=== PATIENT | female | born 1940 | race Caucasian/White ===

== ENCOUNTER 2017-12-26 16:06 | Outpatient (CLI) | payer MEDICARE | END 2017-12-26 16:07 | disposition home or self-care (01) | LOC: BICRAD 16:06 | PROVIDERS: ATTEND Family Medicine | DX: R06.02 Shortness of breath (principal) | CPT/HCPCS: 71046 ==

== ENCOUNTER 2018-01-11 10:51 | Outpatient (CLI) | payer MEDICARE ==
--- NOTE | 2018-01-11 13:17 | CT ---
CT CHEST WITH IV CONTRAST: Date: 01/11/18 HISTORY: Shortness of breath. FINDINGS: There is a 5.0 mm low density lesion in the right lobe of the thyroid gland. No mediastinal, hilar, o r axillary mass or lymphadenopathy seen. There are vascular calcifications without evidence of aneury smal dilatation of the thoracic aorta. No pleural or pericardial effusions are seen. Mild emphysemato us changes are seen. There is a 5.0 mm nodule in the right upper lobe. An 8-9 mm nodule is noted post eriorly in the right upper lobe close to the fissure. There are changes of vertebroplasty in the spin e. IMPRESSION: Indeterminate lung nodules. Further evaluation PET scan would be helpful. POS: PEÑA
[2018-01-11] MEDS ORDERED: Iopamidol 370 76% 100 ML VIAL ONE (15:04)
== END 2018-01-11 10:52 | disposition home or self-care (01) ==
LOC: CT 10:51
DX: R91.8 Other nonspecific abnormal finding of lung field (principal); Z87.891 Personal history of nicotine dependence
CPT/HCPCS: 71260

== ENCOUNTER 2018-02-23 11:45 | Outpatient (CLI) | payer MEDICARE ==
--- NOTE | 2018-02-23 13:45 | PET ---
PET WITH CT SKULL TO MID THIGH: COMPARISON: Reference is made to recent chest CT 01/11/18. CLINICAL HISTORY: Solitary pulmonary nodule. FINDINGS: There is appropriate biodistribution of radiotracer activity. FINDINGS: There is no abnormal hypermetabolic activity localizing to previously documented pulmonary nodule of the right upper lobe. The previously documented nodular density abutting the right major fissure is less conspicuous with patchy ground-glass and interstitial opacities of this region remaining which m ay relate to interstitial lung disease. There is no hypermetabolic mass or adenopathy of the abdomen and pelvis. No hypermetabolic osseous l esions are visualized. There is a focus of increased metabolic activity localizing to the region of the transverse colon which is contracted in this region. This is not definitively characterized on t he basis of this exam. There is a 9 mm focus of subcutaneous density posteriorly at the central upp er chest with mild increased metabolic activity. This may relate to a sebaceous cyst. Correlate wit h physical exam. IMPRESSION: 1. No hypermetabolic activity localizing to ground-glass nodule of right upper lobe. The additional nodular density abutting the right major fissure is less conspicuous with interstitial lung disease present at this region given residual nodular density of the right upper lobe. A 6-month followup CT thorax is documented appropriate resolution, and to exclude progression in size. 2. Focal area of increased metabolic activity localizing to the region of transverse colon which may be physiologic. As a conservative measure, recommend appropriate age-related colonic screening to e xclude an underlying mural-based lesion, which is difficult to entirely exclude on the basis of this exam which is not tailored to evaluate the bowel. POS: PEÑA
== END 2018-02-23 11:46 | disposition home or self-care (01) ==
LOC: PET 11:45
DX: J43.2 Centrilobular emphysema (principal); R91.1 Solitary pulmonary nodule; J45.30 Mild persistent asthma, uncomplicated; J30.2 Other seasonal allergic rhinitis
CPT/HCPCS: 78815; A9552

== ENCOUNTER 2018-10-12 15:05 | Outpatient (CLI) | payer MEDICARE ==
--- NOTE | 2018-10-12 15:38 | CT ---
CT OF CHEST PERFORMED WITHOUT CONTRAST ENHANCEMENT: Date: 10/12/18 HISTORY: Follow-up pulmonary nodules. COMPARISON: 01/11/18 exam. FINDINGS: A ground-glass nodule seen on axial image 15 in the right upper lobe measures in the 5-6 mm range. It is felt to be stable. The second area of ground-glass nodularity, which was seen in the posterior se gment of the right upper lobe abutting the fissure, is much less prominent on this examination. The p arenchymal changes that were surrounding that area are stable. There are no new nodules identified. A chronic interstitial lung change I the right base is stable. I do not appreciate any significant mediastinal or hilar adenopathy. Coronary calcifications are pres ent. There are hypodensities within the liver which appear to represent cysts. Right and left adrenal glands are normal. Vertebroplasty changes are noted. IMPRESSION: 1. Stable appearance to an approximately 5-6 mm right upper lobe ground-glass nodule. 2. The second nodular density which was seen to measure in the 8.0 mm range located along the senior office support assistant sosa ior segment of the right upper lobe abutting the major fissure is not even perceptible on this examin ation. The parenchymal changes in this area are similar to the prior study. POS: EMILE
== END 2018-10-12 15:06 | disposition home or self-care (01) ==
LOC: BICCT 15:05
PROVIDERS: ATTEND Internal Medicine Pulmonary Disease
DX: R91.1 Solitary pulmonary nodule (principal); J43.2 Centrilobular emphysema; J45.30 Mild persistent asthma, uncomplicated; J30.2 Other seasonal allergic rhinitis; K51.80 Other ulcerative colitis without complications; R10.9 Unspecified abdominal pain; M06.39 Rheumatoid nodule, multiple sites; E03.1 Congenital hypothyroidism without goiter; D51.0 Vitamin B12 deficiency anemia due to intrinsic factor deficiency; I73.9 Peripheral vascular disease, unspecified; Z79.899 Other long term (current) drug therapy
CPT/HCPCS: 36415; 71250; 80053; 82607; 82746; 84443; 85025

== ENCOUNTER 2019-11-20 11:46 | Outpatient (CLI) | payer MEDICARE ==
--- NOTE | 2019-11-20 13:08 | MRI ---
MRI LUMBAR SPINE NONCONTRAST: DATE: 11/20/2019 HISTORY: 79-year-old female with lumbar radiculopathy M 54.16 COMPARISON: None FINDINGS: There is dilation of the common bile duct, common hepatic duct, and pancreatic duct. This was also pr esent on abdominal and pelvis CT of 09/19/2012. There is an approximately 1 cm T2 moderately hyperintense lesion in the right lobe of the liver hepatic segment 6, which was shown by the 09/19/2012 CT to be a hemangioma. There is vertebroplasty cement at every visualized lumbar vertebral body as seen on sagittal images, T10, T11, T12, L1, L2, L3, L4, and L5. There is mild broad indentation of the superior endplate of T11, causing low-grade, mild loss of height. Prominent Schmorl's node at superior endplate of T12 wit hout overall loss of height. Mild anterior wedging with right-sided approximately 20-30% loss of height of L1. Large focal depression of superior endplate of L2 consistent with a large Schmorl's nod e and overall mild anterior wedging. Otherwise, the rest of the lumbar vertebral body heights are maintained. Superior endplate of T10 is excluded from the [id number] on the sagittal images. There is exaggerated lordosis of lumbar spine. No bone marrow edema. T12-L1:No high-grade disc space narrowing. Minimal disc bulge. No central or neural foraminal stenosi s. Conus medullaris terminates at L1. L1-2:Retrolisthesis of L1 on L2. Disc space narrowing. Despite the retrolisthesis, there is no centra l stenosis. Mild to moderate right neural foraminal stenosis. No significant left neural foraminal stenosis. L2-3:Retrolisthesis of L2 on L3, plus prominent diffuse disc bulge. Moderate ligamentum flavum thicke marcus, right greater than left. Moderate central spinal canal stenosis. Severe thecal sac stenosis. Moderate to severe bilateral neural foraminal stenosis. L3-4:Retrolisthesis of L3 on L4. Mild diffuse disc bulge. Moderate bilateral facet DJD. No significan t central stenosis. Moderate right neural foraminal stenosis. Moderate to severe left neural foraminal stenosis. L4-5:Somewhat severe bilateral facet DJD causes minimal anterolisthesis of L4 on L5 by approximately 2 mm. Disc space maintained. Mild disc bulge. Ligamentum flavum mild thickening. No significant central stenosis. Mild right neural foraminal stenosis. Moderate left neural foraminal stenosis. L5-S1:Somewhat severe bilateral facet DJD. Disc space maintained. Minimal anterolisthesis of L5 on S1 . No central stenosis. No neural foraminal stenosis. Bilateral "conjoined" nerve roots. 0.7 cm round nerve root sleeve cyst within left neural foramen. This chronically indents the exiting left L5 nerve root. IMPRESSION: 1) vertebroplasty cement at L3 visualized level throughout the entire lumbar spine and visualized low er thoracic spine. 2) prominent superior endplate Schmorl's nodes and mild chronic anterior wedging of T11, T12, L1, and especially L2. 3) lumbar spondylosis, with multilevel mild and moderate degenerative disc disease, and high-grade lo wer level facet osteoarthrosis. Exaggerated lordosis. 4) severe thecal sac stenosis at L2-3. 5) retrolistheses at L1-2, L3-4, and especially L2-3. 6) several levels of high-grade neural foraminal stenosis. 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 8) ductal ectasia of pancreatic duct, common bile duct, and common hepatic duct, apparently chronic.
== END 2019-11-20 11:47 | disposition home or self-care (01) ==
LOC: MRI 11:46
PROVIDERS: ATTEND Anesthesiology Pain Medicine
DX: M51.16 Intervertebral disc disorders with radiculopathy, lumbar region (principal); M47.26 Other spondylosis with radiculopathy, lumbar region; M51.46 Schmorl's nodes, lumbar region; M40.56 Lordosis, unspecified, lumbar region; M48.061 Spinal stenosis, lumbar region without neurogenic claudication; M43.16 Spondylolisthesis, lumbar region; K83.8 Other specified diseases of biliary tract; K86.89 Other specified diseases of pancreas; Z98.890 Other specified postprocedural states
CPT/HCPCS: 72148

== ENCOUNTER 2020-08-21 14:15 | Outpatient (CLI) | payer MEDICARE ==
--- NOTE | 2020-08-21 15:29 | MRI ---
MRI Lumbar Spine Noncontrast: HISTORY: Foraminal stenosis of lumbar region COMPARISON: 11/20/2019 FINDINGS: A 6 mm hyperintense lesion is seen in the posterior aspect posterior segment right hepatic lobe. The larger hyperintense lesion seen in the liver on prior exam is not imaged on today's exam. T2 hyperintense area within the left renal pelvis is again seen and likely related to parapelvic renal c yst. Dilatation of the common duct is again seen on this exam. Vertebroplasty changes are again seen throughout the lower thoracic and lumbar spine and involving al l the vertebral bodies extending from the T9 vertebral body to the L5 vertebral body. Prominent Schmorl's nodes are seen in lower thoracic and upper lumbar spine. Mild anterior wedging of lower tho racic and upper lumbar vertebral bodies again seen and stable. Exaggerated lordosis thoracolumbar spine is again seen. Conus medullaris is normal in morphology and terminates at the L1 level. Paravertebral soft tissues have a normal appearance. T12-L1: Mild disc osteophyte complex without significant central canal or neural foraminal narrowing. L1-2: Stable slight retrolisthesis of L1 on L2. Broad-based disc osteophyte complex is present. There is slight effacement of the ventral subarachnoid space without significant central canal narrowing. Mild to moderate right and mild left-sided neural foraminal narrowing is present. L2-3: Stable retrolisthesis of L2 on L3. Loss of intervertebral disc height and broad-based disc oste ophyte complex is again seen. Facet hypertrophic changes and ligamentous thickening are noted. Findings again result in severe central canal narrowing. Moderate to severe bilateral neural foramina l narrowing is again seen. There is increased T2-weighted signal intensity along the posterior endplates at this level likely related to degenerative endplate changes. L3-4: Stable slight retrolisthesis of L3 on L4. Broad-based disc osteophyte complex and facet hypertr ophic changes are again seen. No significant central canal narrowing, but there is moderate right and moderate to severe left-sided neural foraminal narrowing again present L4-5: Mild broad-based disc osteophyte complex with moderate facet hypertrophic changes. Suggestion o f trace anterolisthesis of L4 on L5. No significant central canal narrowing is present, but there is mild right and [id number] left-sided neural foraminal narrowing. L5-S1: Moderate facet hypertrophic changes. Central spinal canal and neural foramina are patent at th is level. Minimal disc bulge is present. Dilated nerve root sleeve left neural foramen is present. 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 IMPRESSION: 1. Multilevel vertebroplasty changes throughout the visualized lower thoracic spine as well as involv ing the lumbar spine. 2. Stable chronic wedge-shaped deformities of lower thoracic and upper lumbar vertebral bodies. 3. Persistent severe central canal narrowing at the L2-3 level. 4. Retrolisthesis of L1 on L2, L2 on L3, and L3 on L4. 5. Varying degrees of neural foraminal narrowing at multiple levels including moderate and severe deg bola of neural foraminal narrowing. 6. Stable dilated nerve root sleeve L5-S1 left neural foramen. 7. MRI lumbar spine is stable compared to prior exam.
== END 2020-08-21 14:16 | disposition home or self-care (01) ==
LOC: MRI 14:15
PROVIDERS: ATTEND Anesthesiology Pain Medicine
DX: M48.061 Spinal stenosis, lumbar region without neurogenic claudication (principal); M43.8X4 Other specified deforming dorsopathies, thoracic region; M43.8X6 Other specified deforming dorsopathies, lumbar region; M43.16 Spondylolisthesis, lumbar region; Z98.890 Other specified postprocedural states
CPT/HCPCS: 72148

== ENCOUNTER 2020-12-30 06:21 | Inpatient (IN) | payer MEDICARE ==
[2020-12-30 07:17] LABS: #Eosinphils 0.1 thou/uL (0.0-0.7); #Lymphocytes 1.7 thou/uL (1.20-3.40); #Neutrophils 7.6 thou/uL (1.40-6.50); %Basophils 0.2 % (0.0-1.0); %Eosinophils 0.9 % (0.0-10.0); %Lymphocytes 16.4 % (21.0-51.0); %Monocytes 9.6 % (0.0-10.0); %Neutrophils 72.8 % (42.0-75.0); Mean Corpuscular HGB CONC 33.2 g/dL (32.0-36.0); Mean Corpuscular Hemoglobin 29.7 pg (27.0-31.0); Mean Corpuscular Volume 89.5 fL (78.0-98.0); Mean Platelet Volume 9.8 fL (7.4-10.4); Platelet Count 153 thou/uL (130-400); RBC Distribution Width 12.9 % (11.5-14.5); Red Blood Cell (RBC) Count 4.04 mill/uL (4.20-5.40); White Blood Cell (WBC) Count 10.5 thou/uL (4.8-10.8)
[2020-12-30 07:35] LABS: ALT (SGPT) 8 U/L (8-55); AST (SGOT) 9 U/L (5-34); Albumin 3.4 g/dL (3.4-4.8); Alkaline Phosphatase 88 U/L (40-110); Anion Gap 13 mmol/L (10-20); BUN (Urea Nitrogen) 9 mg/dL (9.8-20.1); Bilirubin, Total 0.9 mg/dL (0.2-1.2); CK (CPK) 37 U/L (29-168); Calc. Creatinine Clearance 0 mL/min (70-130); Calcium 8.8 mg/dL (7.8-10.44); Carbon Dioxide 28 mmol/L (23-31); Chloride 102 mmol/L (98-107); Globulin 3.2 g/dL (2.4-3.5); Glucose 109 mg/dL (83-110); Potassium 3.5 mmol/L (3.5-5.1); Protein, Total 6.6 g/dL (5.8-8.1); Sodium 139 mmol/L (136-145)
[2020-12-30] MEDS ORDERED: methylPREDNISolone Sod Succ/PF 125 MG/2 ML VIAL ONE (08:16)
[2020-12-30] MEDS ORDERED: Magnesium 2 GM/50 ML BAG (IN WATER) ONE (08:16)
[2020-12-30] MEDS ORDERED: diphenhydrAMINE 50 MG/ML VIAL ONE (08:16)
[2020-12-30] MEDS ORDERED: Metoclopramide HCl 10 MG/2 ML VIAL ONE (08:16)
[2020-12-30] MEDS ORDERED: Acetaminophen 500 MG TAB ONE (08:16)
[2020-12-30] MEDS ORDERED: Iopamidol-370 76% 500 ML 1 ML ONE (08:49)
[2020-12-30] MEDS ORDERED: Albuterol 200 PUFF (6.7GM INHALER) ONE (09:22)
[2020-12-30] MEDS ORDERED: cefTRIAXone\\ROCEPHIN 2 GM VIAL ONE (10:25)
[2020-12-30] MEDS ORDERED: Azithromycin 500 MG VIAL ONE (10:25)
[2020-12-30] MEDS ORDERED: Acetaminophen 650 MG Suppository PR PRN (10:32)
[2020-12-30] MEDS ORDERED: Ondansetron ODT 4 MG TAB PO PRN (10:32)
[2020-12-30] MEDS ORDERED: Ondansetron PF 4 MG/2 ML Vial IVP PRN (10:32)
[2020-12-30] MEDS ORDERED: Albuterol 200 PUFF (6.7GM INHALER) INH PRN ×2 (10:43→11:26)
[2020-12-30] MEDS ORDERED: Enoxaparin Sodium 40 MG/0.4 ML SYRINGE SC SCH (10:45)
[2020-12-30 12:36] LABS: Lactic Acid 0.8 mmol/L (0.5-2.2)
[2020-12-30 12:46] LABS: SARS-CoV-2 NAA Rapid Test Not Detected (NotDetected)
[2020-12-30] MEDS: Sodium Chloride 0.9% 1,000 ML IV SCH (13:51)
[2020-12-30 14:08] VITALS: BMI 25.7
[2020-12-30] MEDS ORDERED: Albuterol Sulfate 2.5 mg/3 ml Neb EZPAP SCH (15:00)
[2020-12-30] MEDS ORDERED: Albuterol 200 PUFF (6.7GM INHALER) INH SCH (15:00)
[2020-12-30] MEDS: Albuterol 200 PUFF (6.7GM INHALER) INH SCH ×3 (18:39→21:50)
[2020-12-30] MEDS: Famotidine 20 MG TAB PO SCH (20:50)
[2020-12-30] MEDS: predniSONE 20 MG TAB PO SCH (20:51)
[2020-12-31] MEDS: Albuterol 200 PUFF (6.7GM INHALER) INH SCH ×6 (02:15→21:58)
[2020-12-31] MEDS: Sodium Chloride 0.9% 1,000 ML IV SCH ×2 (04:24→12:12)
[2020-12-31 06:24] LABS: #Lymphocytes 0.9 thou/uL (1.20-3.40); #Monocytes 0.5 thou/uL (0.11-0.59); #Neutrophils 9.6 thou/uL (1.40-6.50); %Basophils 0.1 % (0.0-1.0); %Eosinophils 0.1 % (0.0-10.0); %Lymphocytes 8.5 % (21.0-51.0); %Monocytes 4.7 % (0.0-10.0); %Neutrophils 86.7 % (42.0-75.0); Hemoglobin 11.2 g/dL (12.0-16.0); Mean Corpuscular HGB CONC 32.7 g/dL (32.0-36.0); Mean Corpuscular Hemoglobin 29.4 pg (27.0-31.0); Mean Corpuscular Volume 89.8 fL (78.0-98.0); Mean Platelet Volume 10.2 fL (7.4-10.4); Platelet Count 160 thou/uL (130-400); RBC Distribution Width 12.9 % (11.5-14.5); Red Blood Cell (RBC) Count 3.82 mill/uL (4.20-5.40); White Blood Cell (WBC) Count 11.1 thou/uL (4.8-10.8)
[2020-12-31] MEDS: Acetaminophen 325 MG TAB PO PRN ×2 (06:31→20:29)
[2020-12-31 06:38] LABS: Anion Gap 12 mmol/L (10-20); BUN (Urea Nitrogen) 11 mg/dL (9.8-20.1); Calc. Creatinine Clearance 90 mL/min (70-130); Calcium 8.6 mg/dL (7.8-10.44); Carbon Dioxide 25 mmol/L (23-31); Chloride 110 mmol/L (98-107); Glucose 152 mg/dL (83-110); Potassium 3.5 mmol/L (3.5-5.1); Sodium 143 mmol/L (136-145)
[2020-12-31] MEDS: Enoxaparin Sodium 40 MG/0.4 ML SYRINGE SC SCH (08:02)
[2020-12-31] MEDS: Famotidine 20 MG TAB PO SCH ×2 (08:03→20:27)
[2020-12-31] MEDS: predniSONE 20 MG TAB PO SCH ×2 (08:03→20:28)
[2020-12-31] MEDS ORDERED: DEXTROAMPHETAMINE PO SCH (09:00)
[2020-12-31] MEDS ORDERED: [UNRECOGNIZED DRUG - OTHER] PO SCH (09:00)
[2020-12-31] MEDS ORDERED: AMPHETAMINE PO SCH (09:00)
[2020-12-31] MEDS ORDERED: USTEKINUMAB 90 MG/ML SC SCH (09:15)
[2020-12-31] MEDS ORDERED: Azithromycin 500 MG in Sodium Chloride 0.9% 250 ML 250 ML IVPB SCH (11:00)
[2020-12-31] MEDS: Cholecalciferol 1,000 UNITS (25 MCG) TAB PO SCH ×2 (11:01→20:28)
[2020-12-31] MEDS: cefTRIAXone\\ROCEPHIN 1 GM in Sodium Chloride 0.9% 100 ML IVPB SCH (11:02)
[2020-12-31] MEDS ORDERED: Ibuprofen 200 MG TAB PO PRN (11:25)
[2020-12-31] MEDS: Ibuprofen 200 MG TAB PO PRN ×2 (11:44→17:47)
[2020-12-31] MEDS: Guaifenesin DM 100-10/5 ML UDCUP PO PRN (17:55)
[2021-01-01] MEDS: Albuterol 200 PUFF (6.7GM INHALER) INH SCH ×3 (02:18→10:04)
[2021-01-01] MEDS ORDERED: Levothyroxine Sodium 50 MCG TAB PO SCH (06:00)
[2021-01-01] MEDS: Guaifenesin DM 100-10/5 ML UDCUP PO PRN (07:05)
[2021-01-01] MEDS: Ibuprofen 200 MG TAB PO PRN (07:06)
[2021-01-01 07:41] LABS: Hemoglobin 12.1 g/dL (12.0-16.0); Mean Corpuscular Hemoglobin 28.9 pg (27.0-31.0); Mean Corpuscular Volume 90.5 fL (78.0-98.0); Mean Platelet Volume 11.1 fL (7.4-10.4); Platelet Count 196 thou/uL (130-400); RBC Distribution Width 12.9 % (11.5-14.5); Red Blood Cell (RBC) Count 4.19 mill/uL (4.20-5.40); White Blood Cell (WBC) Count 10.7 thou/uL (4.8-10.8)
[2021-01-01 07:42] VITALS: BP 155/76; TEMP 97.7
[2021-01-01 07:56] LABS: Anion Gap 10 mmol/L (10-20); Calc. Creatinine Clearance 86 mL/min (70-130); Calcium 9.2 mg/dL (7.8-10.44); Carbon Dioxide 30 mmol/L (23-31); Chloride 106 mmol/L (98-107); Glucose 152 mg/dL (83-110); Potassium 3.6 mmol/L (3.5-5.1); Sodium 142 mmol/L (136-145)
[2021-01-01 08:26] LABS: BUN (Urea Nitrogen) 11 mg/dL (9.8-20.1)
[2021-01-01] MEDS: Enoxaparin Sodium 40 MG/0.4 ML SYRINGE SC SCH (08:51)
[2021-01-01] MEDS: Famotidine 20 MG TAB PO SCH (08:52)
[2021-01-01] MEDS: predniSONE 20 MG TAB PO SCH (08:52)
[2021-01-01] MEDS: Cholecalciferol 1,000 UNITS (25 MCG) TAB PO SCH (08:53)
[2021-01-01 10:09] LABS: Band 9 % (5-11); Lymphocytes 14 % (21-51); MDiff Complete? YES; Monocytes 3 % (0-10); Neutrophil 74 % (42-75); Platelet Morphology Comment Appears Adequate; Polychromasia SLIGHT = 2-3 cells (100X) (0-2/hpf)
[2021-01-01] MEDS: cefTRIAXone\\ROCEPHIN 1 GM in Sodium Chloride 0.9% 100 ML IVPB SCH (10:43)
== END 2021-01-01 11:05 | disposition home or self-care (01) | DRG 871 ==
LOC: ERS 06:21 → ERHOLD 10:18 → T4-A 13:11
PROVIDERS: ADMIT Internal Medicine; ATTEND Internal Medicine
DX: A41.9 Sepsis, unspecified organism (principal); J96.01 Acute respiratory failure with hypoxia; J13 Pneumonia due to Streptococcus pneumoniae; J45.901 Unspecified asthma with (acute) exacerbation; K51.00 Ulcerative (chronic) pancolitis without complications; E78.5 Hyperlipidemia, unspecified; J43.9 Emphysema, unspecified; R91.1 Solitary pulmonary nodule; G89.4 Chronic pain syndrome; M06.9 Rheumatoid arthritis, unspecified; E03.9 Hypothyroidism, unspecified; J45.909 Unspecified asthma, uncomplicated; I10 Essential (primary) hypertension; Z87.891 Personal history of nicotine dependence; Z88.1 Allergy status to other antibiotic agents; Z90.710 Acquired absence of both cervix and uterus; Z88.2 Allergy status to sulfonamides; Z88.8 Allergy status to other drugs, medicaments and biological substances; Z98.890 Other specified postprocedural states; Z79.890 Hormone replacement therapy; Z20.822 Contact with and (suspected) exposure to COVID-19
CPT/HCPCS: 0240U; 36415; 71275; 80048; 80053; 82550; 83605; 83880; 84484; 85025; 87040; 93005; 96365; 96367; 96375; J0456; J0696; J1200; J1650; J2765; J2930; J3475; J3490; J7050; J7512; Q9967

== ENCOUNTER 2021-02-27 10:27 | Outpatient (CLI) | payer MEDICARE ==
[2021-02-27 18:50] LABS: SARS-CoV-2 PCR by NAA Not Detected (NotDetected)
== END 2021-02-27 10:28 | disposition home or self-care (01) ==
LOC: LABBT 10:27
PROVIDERS: ATTEND Neurological Surgery
DX: Z01.812 Encounter for preprocedural laboratory examination (principal); M48.062 Spinal stenosis, lumbar region with neurogenic claudication; Z20.822 Contact with and (suspected) exposure to COVID-19
CPT/HCPCS: U0003; U0005

== ENCOUNTER 2021-03-04 05:37 | Day surgery (SDC) | payer MEDICARE ==
[2021-03-03 10:57] VITALS: BMI 26.5
[2021-03-04] MEDS ORDERED: Thrombin 5000 UNITS/5 ML VIAL ONE (06:24)
[2021-03-04] MEDS ORDERED: Bupivacaine PF 0.5% 30 ML VIAL ONE (06:24)
[2021-03-04] MEDS ORDERED: EPINEPHrine 1 MG/ML AMP ONE (06:24)
[2021-03-04] MEDS ORDERED: Fentanyl 100 MCG/2 ML VIAL ONE ×4 (06:28→09:28)
[2021-03-04] MEDS ORDERED: PROPOFOL 200 MG/20 ML VIAL ONE (07:05)
[2021-03-04] MEDS ORDERED: Rocuronium Bromide 10 MG/ML (10ML VIAL) ONE (07:05)
[2021-03-04] MEDS ORDERED: Lidocaine 1% PF 5 ML VIAL ONE (07:05)
[2021-03-04] MEDS ORDERED: Ondansetron PF 4 MG/2 ML Vial ONE (07:05)
[2021-03-04] MEDS ORDERED: Dexamethasone 20 MG/5 ML VIAL ONE (07:05)
[2021-03-04] MEDS ORDERED: SUGAMMADEX SODIUM 200 MG/2 ML VIAL ONE (08:00)
[2021-03-04] MEDS ORDERED: HYDROcodone/Acetaminophen 5/325 mg Tablet ONE (10:26)
== END 2021-03-04 11:50 | disposition home or self-care (01) ==
LOC: SDC 05:37
PROVIDERS: ATTEND Neurological Surgery
PROC: 01NB0ZZ Release Lumbar Nerve, Open Approach (ICD-10-PCS; principal; 2021-03-04)
DX: M48.062 Spinal stenosis, lumbar region with neurogenic claudication (principal); M81.0 Age-related osteoporosis without current pathological fracture; G89.4 Chronic pain syndrome; K21.9 Gastro-esophageal reflux disease without esophagitis; Z79.899 Other long term (current) drug therapy; Z88.1 Allergy status to other antibiotic agents; Z88.2 Allergy status to sulfonamides; Z88.8 Allergy status to other drugs, medicaments and biological substances; Z98.890 Other specified postprocedural states
CPT/HCPCS: 76000; J0171; J0690; J1100; J2405; J2704; J3010; S0020

== ENCOUNTER 2021-04-29 10:09 | Outpatient (CLI) | payer MEDICARE | END 2021-04-29 10:10 | disposition home or self-care (01) | LOC: BICRAD 10:09 | PROVIDERS: ATTEND Anesthesiology Pain Medicine | DX: M43.16 Spondylolisthesis, lumbar region (principal); Z98.890 Other specified postprocedural states | CPT/HCPCS: 72110 ==

== ENCOUNTER 2021-07-20 09:26 | Outpatient (CLI) | payer MEDICARE | END 2021-07-20 09:27 | disposition home or self-care (01) | LOC: BICCT 09:26 | PROVIDERS: ATTEND Internal Medicine Critical Care Medicine | DX: R91.1 Solitary pulmonary nodule (principal); R91.8 Other nonspecific abnormal finding of lung field; J18.9 Pneumonia, unspecified organism | CPT/HCPCS: 71250 ==

== ENCOUNTER 2023-07-21 08:59 | Outpatient (CLI) | payer MEDICARE | END 2023-07-21 09:00 | disposition home or self-care (01) | LOC: CT 08:59 | PROVIDERS: ATTEND Internal Medicine Critical Care Medicine | DX: R91.1 Solitary pulmonary nodule (principal); J98.4 Other disorders of lung; J43.9 Emphysema, unspecified | CPT/HCPCS: 71250 ==

== ENCOUNTER 2024-04-10 11:17 | Outpatient (CLI) | payer MEDICARE | END 2024-04-10 11:18 | disposition home or self-care (01) | LOC: RAD 11:17 | PROVIDERS: ATTEND Internal Medicine Critical Care Medicine | DX: R06.00 Dyspnea, unspecified (principal) | CPT/HCPCS: 71046 ==

== ENCOUNTER 2024-06-20 08:42 | Outpatient (CLI) | payer MEDICARE | END 2024-06-20 08:43 | disposition home or self-care (01) | LOC: SCSMRI 08:42 | PROVIDERS: ATTEND Specialist | DX: M48.062 Spinal stenosis, lumbar region with neurogenic claudication (principal); M47.816 Spondylosis without myelopathy or radiculopathy, lumbar region; M47.817 Spondylosis without myelopathy or radiculopathy, lumbosacral region; M48.04 Spinal stenosis, thoracic region; M43.14 Spondylolisthesis, thoracic region; M43.16 Spondylolisthesis, lumbar region; K83.8 Other specified diseases of biliary tract; N94.89 Other specified conditions associated with female genital organs and menstrual cycle; K76.9 Liver disease, unspecified; Z98.890 Other specified postprocedural states | CPT/HCPCS: 72148 ==

== ENCOUNTER 2024-07-31 09:51 | Outpatient (CLI) | payer MEDICARE | END 2024-07-31 09:52 | disposition home or self-care (01) | LOC: BICCT 09:51 | PROVIDERS: ATTEND Internal Medicine Critical Care Medicine | DX: R91.1 Solitary pulmonary nodule (principal) | CPT/HCPCS: 71250 ==

== ENCOUNTER 2025-07-27 15:50 | Inpatient (IN) | payer MEDICARE ==
[2025-07-27 16:13] LABS: Actual Bicarbonate (HCO3v) 21.2 mEq/L (22-28); Analyzer IN Cardio ER; Base Excess -4.1 mEq/L (-2.0 to +3.0); Calcium, Ionized (venous) 1.03 mmol/L (1.16-1.32); Chloride (VBG) 101 mmol/L (98-106); Hematocrit-VBG 39 % (36.0-47.0); Hemoglobin (Hb) 13.1 g/dL (11.7-16.1); Potassium (VBG) 3.28 mmol/L (3.70-5.30); Sodium 135 mmol/L (133-146)
[2025-07-27 16:46] LABS: #Basophils 0.03 10x3/uL (0.0-0.2); #Eosinophils Less than 0.03 10x3/uL (0.0-0.7); #Monocytes 0.73 10x3/uL (0.11-0.59); #Neutrophils 10.21 10x3/uL (1.40-6.50); %Basophils 0.3 % (0.0-1.0); %Eosinophils 0.0 % (0.0-10.0); %Lymphocytes 6.4 % (21.0-51.0); %Monocytes 6.1 % (0.0-10.0); %Neutrophils 85.9 % (42.0-75.0); Hematocrit 35.8 % (36.0-47.0); Hemoglobin 11.6 g/dL (12.0-16.0); Mean Corpuscular Hemoglobin 28.8 pg (27.0-31.0); Mean Corpuscular Volume 88.8 fL (78.0-98.0); Platelet Count 144 10x3/uL (130-400); Red Blood Cell (RBC) Count 4.03 mill/uL (4.20-5.40); White Blood Cell (WBC) Count 11.89 10x3/uL (4.8-10.8)
[2025-07-27 17:05] LABS: ALT (SGPT) 19 U/L (Less than 34); AST (SGOT) 37 U/L (11-34); Albumin 2.9 g/dL (3.1-4.5); Alkaline Phosphatase 57 U/L (40-110); Anion Gap 19 mmol/L (10-20); BUN (Urea Nitrogen) 19 mg/dL (9.8-20.1); Bilirubin, Total 0.8 mg/dL (0.3-1.2); Calc. Creatinine Clearance 0 mL/min (70-130); Calcium 8.1 mg/dL (7.8-10.44); Carbon Dioxide 21 mmol/L (23-31); Chloride 103 mmol/L (98-107); Globulin 2.6 g/dL (2.4-3.5); Glucose 88 mg/dL (83-110); Potassium 3.4 mmol/L (3.5-5.1); Sodium 140 mmol/L (136-145)
[2025-07-27] MEDS ORDERED: Ondansetron PF 4 MG/2 ML Vial IVP PRN (17:46)
[2025-07-27 19:37] VITALS: BMI 25.7
[2025-07-27] MEDS: Famotidine/PF 20 mg/2ml Vial SLOW IVP SCH (20:12)
[2025-07-27] MEDS: Famotidine 20 MG TAB PO SCH (21:34)
[2025-07-27] MEDS: Acetaminophen 325 MG TAB PO PRN (21:34)
[2025-07-28] MEDS: cefTRIAXone\\ROCEPHIN 1 GM in Sodium Chloride 0.9% 100 ML IVPB SCH (05:07)
[2025-07-28] MEDS: Azithromycin 500 MG in Sodium Chloride 0.9% 250 ML 250 ML IVPB SCH (05:07)
[2025-07-28 05:35] LABS: Hematocrit 32.9 % (36.0-47.0); Hemoglobin 10.7 g/dL (12.0-16.0); Mean Corpuscular Hemoglobin 29.2 pg (27.0-31.0); Mean Corpuscular Volume 89.6 fL (78.0-98.0); Platelet Count 124 10x3/uL (130-400); Red Blood Cell (RBC) Count 3.67 mill/uL (4.20-5.40); White Blood Cell (WBC) Count 12.90 10x3/uL (4.8-10.8)
[2025-07-28 05:48] LABS: ALT (SGPT) 20 U/L (Less than 34); AST (SGOT) 27 U/L (11-34); Albumin 2.6 g/dL (3.1-4.5); Alkaline Phosphatase 45 U/L (40-110); Anion Gap 12 mmol/L (10-20); BUN (Urea Nitrogen) 19 mg/dL (9.8-20.1); Bilirubin, Total 0.5 mg/dL (0.3-1.2); Calc. Creatinine Clearance 83 mL/min (70-130); Calcium 7.7 mg/dL (7.8-10.44); Carbon Dioxide 21 mmol/L (23-31); Chloride 108 mmol/L (98-107); Globulin 2.6 g/dL (2.4-3.5); Glucose 115 mg/dL (83-110); Potassium 3.2 mmol/L (3.5-5.1); Sodium 138 mmol/L (136-145)
[2025-07-28 05:59] LABS: Burr Cells SLIGHT = 2-5 cells HPF (0-1); Platelet Adequacy Comment Platelets Decreased; Smudge Cells 1.0 %
[2025-07-28] MEDS: Enoxaparin 40 MG (0.4 mL) SYRINGE SC SCH (10:21)
[2025-07-28] MEDS: QUEtiapine 100 MG TAB PO SCH (20:54)
[2025-07-28] MEDS: Mesalamine 1000 MG Suppository PR SCH (21:27)
[2025-07-29 04:34] LABS: Hematocrit 30.8 % (36.0-47.0); Hemoglobin 9.8 g/dL (12.0-16.0); Mean Corpuscular Hemoglobin 28.9 pg (27.0-31.0); Mean Corpuscular Volume 90.9 fL (78.0-98.0); Platelet Count 124 10x3/uL (130-400); Red Blood Cell (RBC) Count 3.39 mill/uL (4.20-5.40); White Blood Cell (WBC) Count 11.97 10x3/uL (4.8-10.8)
[2025-07-29 04:50] LABS: Anion Gap 10 mmol/L (10-20); BUN (Urea Nitrogen) 17 mg/dL (9.8-20.1); Calc. Creatinine Clearance 92 mL/min (70-130); Calcium 8.2 mg/dL (7.8-10.44); Carbon Dioxide 25 mmol/L (23-31); Chloride 108 mmol/L (98-107); Glucose 102 mg/dL (83-110); Potassium 2.9 mmol/L (3.5-5.1); Sodium 140 mmol/L (136-145)
[2025-07-29 05:07] LABS: Platelet Adequacy Comment Platelets Decreased; Polychromasia SLIGHT = 2-3 cells HPF (0-2)
[2025-07-29] MEDS: Azithromycin 500 MG VIAL ONE (05:56)
[2025-07-29] MEDS: Aspirin 81 mg Enteric Coated Tablet PO SCH (09:04)
[2025-07-29] MEDS ORDERED: Lisinopril 2.5 MG TAB PO SCH (14:45)
[2025-07-29] MEDS: Lisinopril 5 MG TAB PO SCH (15:07)
[2025-07-30 03:45] LABS: #Basophils Less than 0.03 10x3/uL (0.0-0.2); #Eosinophils Less than 0.03 10x3/uL (0.0-0.7); #Monocytes 0.59 10x3/uL (0.11-0.59); #Neutrophils 9.84 10x3/uL (1.40-6.50); %Basophils 0.2 % (0.0-1.0); %Eosinophils 0.0 % (0.0-10.0); %Lymphocytes 5.8 % (21.0-51.0); %Monocytes 5.3 % (0.0-10.0); %Neutrophils 87.8 % (42.0-75.0); Hematocrit 32.5 % (36.0-47.0); Hemoglobin 10.5 g/dL (12.0-16.0); Mean Corpuscular Hemoglobin 29.2 pg (27.0-31.0); Mean Corpuscular Volume 90.3 fL (78.0-98.0); Platelet Count 167 10x3/uL (130-400); Red Blood Cell (RBC) Count 3.60 mill/uL (4.20-5.40); White Blood Cell (WBC) Count 11.20 10x3/uL (4.8-10.8)
[2025-07-30 03:56] LABS: Anion Gap 14 mmol/L (10-20); BUN (Urea Nitrogen) 16 mg/dL (9.8-20.1); Calc. Creatinine Clearance 83 mL/min (70-130); Calcium 8.7 mg/dL (7.8-10.44); Carbon Dioxide 24 mmol/L (23-31); Chloride 108 mmol/L (98-107); Glucose 116 mg/dL (83-110); Potassium 3.7 mmol/L (3.5-5.1); Sodium 142 mmol/L (136-145)
[2025-07-30] MEDS: Lisinopril 5 MG TAB PO SCH (11:05)
[2025-07-30] MEDS: Magnesium Oxide 400 MG TAB PO SCH (11:07)
[2025-07-30] MEDS: Metoprolol Succinate XL 25 MG ER.TAB PO SCH (14:18)
[2025-07-30] MEDS: Diphenoxylate HCl/Atropine Tablet PO PRN (23:07)
[2025-07-31 04:06] LABS: #Basophils Less than 0.03 10x3/uL (0.0-0.2); #Eosinophils Less than 0.03 10x3/uL (0.0-0.7); #Monocytes 0.53 10x3/uL (0.11-0.59); #Neutrophils 5.56 10x3/uL (1.40-6.50); %Basophils 0.3 % (0.0-1.0); %Eosinophils 0.0 % (0.0-10.0); %Lymphocytes 12.9 % (21.0-51.0); %Monocytes 7.4 % (0.0-10.0); %Neutrophils 77.9 % (42.0-75.0); Hematocrit 29.7 % (36.0-47.0); Hemoglobin 9.5 g/dL (12.0-16.0); Mean Corpuscular Hemoglobin 28.8 pg (27.0-31.0); Mean Corpuscular Volume 90.0 fL (78.0-98.0); Platelet Count 163 10x3/uL (130-400); Red Blood Cell (RBC) Count 3.30 mill/uL (4.20-5.40); White Blood Cell (WBC) Count 7.14 10x3/uL (4.8-10.8)
[2025-07-31 04:32] LABS: Anion Gap 13 mmol/L (10-20); BUN (Urea Nitrogen) 17 mg/dL (9.8-20.1); Calc. Creatinine Clearance 88 mL/min (70-130); Calcium 8.7 mg/dL (7.8-10.44); Carbon Dioxide 21 mmol/L (23-31); Chloride 109 mmol/L (98-107); Glucose 136 mg/dL (83-110); Potassium 3.2 mmol/L (3.5-5.1); Sodium 140 mmol/L (136-145)
[2025-07-31] MEDS: Diphenoxylate HCl/Atropine Tablet PO PRN (05:58)
[2025-07-31] MEDS: Metoprolol Succinate XL 25 MG ER.TAB PO SCH (08:54)
[2025-08-01] MEDS: Albumin 25% 25 GM (100 mL) BOT IVPB SCH (00:03)
[2025-08-01 04:35] LABS: #Basophils Less than 0.03 10x3/uL (0.0-0.2); #Eosinophils Less than 0.03 10x3/uL (0.0-0.7); #Monocytes 0.79 10x3/uL (0.11-0.59); #Neutrophils 4.09 10x3/uL (1.40-6.50); %Basophils 0.3 % (0.0-1.0); %Eosinophils 0.1 % (0.0-10.0); %Lymphocytes 22.9 % (21.0-51.0); %Monocytes 11.8 % (0.0-10.0); %Neutrophils 61.3 % (42.0-75.0); Hematocrit 31.1 % (36.0-47.0); Hemoglobin 9.7 g/dL (12.0-16.0); Mean Corpuscular Hemoglobin 28.6 pg (27.0-31.0); Mean Corpuscular Volume 91.7 fL (78.0-98.0); Platelet Count 175 10x3/uL (130-400); Red Blood Cell (RBC) Count 3.39 mill/uL (4.20-5.40); White Blood Cell (WBC) Count 6.68 10x3/uL (4.8-10.8)
[2025-08-01 04:46] LABS: Anion Gap 13 mmol/L (10-20); BUN (Urea Nitrogen) 14 mg/dL (9.8-20.1); Calc. Creatinine Clearance 81 mL/min (70-130); Calcium 9.2 mg/dL (7.8-10.44); Carbon Dioxide 26 mmol/L (23-31); Chloride 106 mmol/L (98-107); Glucose 85 mg/dL (83-110); Potassium 3.3 mmol/L (3.5-5.1); Sodium 142 mmol/L (136-145)
[2025-08-01] MEDS ORDERED: Ibuprofen 800 MG TAB PO PRN (11:55)
[2025-08-01] MEDS ORDERED: Electrolyte Replacement Protocol 1 EACH FS SCH (12:00)
[2025-08-01] MEDS ORDERED: PHOS-NAK 1 PKT PACK PO PRN (12:15)
[2025-08-01] MEDS ORDERED: Magnesium 2 GM/50 ML(in water) 2 GM in Premix 1 BAG IVPB PRN (12:15)
[2025-08-01] MEDS ORDERED: Potassium Chloride 20 MEQ in Premix 1 BAG IVPB PRN (12:15)
[2025-08-01] MEDS: Furosemide 20 MG TAB PO SCH (13:01)
[2025-08-01 20:05] VITALS: BMI 26.6
[2025-08-02 04:29] LABS: #Basophils Less than 0.03 10x3/uL (0.0-0.2); #Eosinophils 0.19 10x3/uL (0.0-0.7); #Monocytes 0.71 10x3/uL (0.11-0.59); #Neutrophils 2.58 10x3/uL (1.40-6.50); %Basophils 0.2 % (0.0-1.0); %Eosinophils 3.6 % (0.0-10.0); %Lymphocytes 30.9 % (21.0-51.0); %Monocytes 13.5 % (0.0-10.0); %Neutrophils 49.1 % (42.0-75.0); Hematocrit 28.7 % (36.0-47.0); Hemoglobin 9.0 g/dL (12.0-16.0); Mean Corpuscular Hemoglobin 28.8 pg (27.0-31.0); Mean Corpuscular Volume 91.7 fL (78.0-98.0); Platelet Count 174 10x3/uL (130-400); Red Blood Cell (RBC) Count 3.13 mill/uL (4.20-5.40); White Blood Cell (WBC) Count 5.25 10x3/uL (4.8-10.8)
[2025-08-02 04:45] LABS: Anion Gap 14 mmol/L (10-20); BUN (Urea Nitrogen) 13 mg/dL (9.8-20.1); Calc. Creatinine Clearance 70 mL/min (70-130); Calcium 8.4 mg/dL (7.8-10.44); Carbon Dioxide 26 mmol/L (23-31); Chloride 107 mmol/L (98-107); Glucose 93 mg/dL (83-110); Potassium 3.9 mmol/L (3.5-5.1); Sodium 143 mmol/L (136-145)
[2025-08-02] MEDS: Furosemide 40 MG TAB PO SCH (08:01)
[2025-08-02] MEDS: Amoxicillin/Potassium Clav 875 MG TAB PO SCH (11:14)
[2025-08-02 11:51] VITALS: BP 123/64; TEMP 97.3
[2025-08-02] MEDS ORDERED: Amoxicillin/Potassium Clav 875 MG TAB PO SCH (21:00)
[2025-08-03] MEDS ORDERED: Spironolactone 25 MG TAB PO SCH (08:00)
== END 2025-08-02 12:17 | disposition home or self-care (01) | DRG 871 ==
LOC: ERS 15:50 → PCU 17:46
PROVIDERS: ADMIT Internal Medicine; ATTEND Family Medicine
PROC: 30233J1 Transfusion of Nonautologous Serum Albumin into Peripheral Vein, Percutaneous Approach (ICD-10-PCS; principal; 2025-07-31)
PROC: 3E03329 Introduction of Other Anti-infective into Peripheral Vein, Percutaneous Approach (ICD-10-PCS; 2025-08-02)
DX: A41.9 Sepsis, unspecified organism (principal); I50.43 Acute on chronic combined systolic (congestive) and diastolic (congestive) heart failure; J96.01 Acute respiratory failure with hypoxia; J69.0 Pneumonitis due to inhalation of food and vomit; J44.1 Chronic obstructive pulmonary disease with (acute) exacerbation; I5A Non-ischemic myocardial injury (non-traumatic); M06.9 Rheumatoid arthritis, unspecified; R65.20 Severe sepsis without septic shock; E03.9 Hypothyroidism, unspecified; K52.9 Noninfective gastroenteritis and colitis, unspecified; F32.A Depression, unspecified; G47.00 Insomnia, unspecified; R13.10 Dysphagia, unspecified; I11.0 Hypertensive heart disease with heart failure; Z88.1 Allergy status to other antibiotic agents; Z88.2 Allergy status to sulfonamides; Z88.8 Allergy status to other drugs, medicaments and biological substances; Z79.890 Hormone replacement therapy; Z79.899 Other long term (current) drug therapy; Z79.82 Long term (current) use of aspirin
CPT/HCPCS: 36415; 71250; 74230; 80048; 80053; 82805; 83605; 83880; 84145; 84484; 85025; 85379; 87040; 93005; 93306; 94640; 94760; J0456; J0696; J1650; J2543; J2919; J7030; J7050; J7626; P9047

== ENCOUNTER 2025-08-03 07:44 | Emergency (ER) | payer MEDICARE ==
[2025-08-03 08:11] LABS: #Basophils Less than 0.03 10x3/uL (0.0-0.2); #Eosinophils 0.51 10x3/uL (0.0-0.7); #Monocytes 0.45 10x3/uL (0.11-0.59); #Neutrophils 4.14 10x3/uL (1.40-6.50); %Basophils 0.3 % (0.0-1.0); %Eosinophils 7.3 % (0.0-10.0); %Lymphocytes 22.7 % (21.0-51.0); %Monocytes 6.4 % (0.0-10.0); %Neutrophils 59.3 % (42.0-75.0); Hematocrit 34.3 % (36.0-47.0); Hemoglobin 11.4 g/dL (12.0-16.0); Mean Corpuscular Hemoglobin 28.9 pg (27.0-31.0); Mean Corpuscular Volume 87.1 fL (78.0-98.0); Platelet Count 239 10x3/uL (130-400); Red Blood Cell (RBC) Count 3.94 mill/uL (4.20-5.40); White Blood Cell (WBC) Count 6.99 10x3/uL (4.8-10.8)
[2025-08-03 08:28] LABS: ALT (SGPT) 17 U/L (Less than 34); AST (SGOT) 16 U/L (11-34); Albumin 2.8 g/dL (3.1-4.5); Alkaline Phosphatase 58 U/L (40-110); Anion Gap 15 mmol/L (10-20); BUN (Urea Nitrogen) 8 mg/dL (9.8-20.1); Bilirubin, Total 0.3 mg/dL (0.3-1.2); Calc. Creatinine Clearance 0 mL/min (70-130); Calcium 8.7 mg/dL (7.8-10.44); Carbon Dioxide 28 mmol/L (23-31); Chloride 101 mmol/L (98-107); Globulin 3.3 g/dL (2.4-3.5); Glucose 94 mg/dL (83-110); Potassium 4.1 mmol/L (3.5-5.1); Sodium 140 mmol/L (136-145)
== END 2025-08-03 10:14 | disposition home or self-care (01) ==
LOC: ERS 07:44
DX: R06.02 Shortness of breath (principal); I50.9 Heart failure, unspecified; Z87.891 Personal history of nicotine dependence; Z79.82 Long term (current) use of aspirin
CPT/HCPCS: 36415; 71045; 80053; 83605; 83880; 84484; 85025; 87040; 87428; 93005; 94760